=== PATIENT | female | born 1970 | race African-American/Black ===

== ENCOUNTER 2018-02-17 14:46 | Outpatient (CLI) | payer OTHER ==
--- NOTE | 2018-02-17 15:09 | RAD ---
RIGHT KNEE 4 VIEWS: Date: 02/17/18 HISTORY: Right knee pain. FINDINGS/IMPRESSION: No fracture, dislocation, or bony destruction is identified. No significant osteophytosis is seen. POS: [facility]
--- NOTE | 2018-02-17 15:10 | RAD ---
LEFT KNEE 4 VIEWS: Date: 02/17/18 HISTORY: Left knee pain. FINDINGS: Joint spaces are preserved. Minimal osteophytosis. No acute fracture, dislocation, or fluid distentio n of the joint capsule. IMPRESSION: Minimal osteoarthritic changes left knee. No acute osseous abnormalities are demonstrated. POS: [facility]
== END 2018-02-17 14:47 | disposition home or self-care (01) ==
LOC: RAD-FRANK 14:46
PROVIDERS: ATTEND Internal Medicine
DX: S89.92XA Unspecified injury of left lower leg, initial encounter (principal); S89.91XA Unspecified injury of right lower leg, initial encounter; M17.12 Unilateral primary osteoarthritis, left knee

== ENCOUNTER 2018-02-19 12:03 | Inpatient (IN) | payer OTHER ==
[2018-02-19 13:02] LABS: #Lymphocytes 1.1 thou/uL (1.20-3.40); #Monocytes 0.3 thou/uL (0.11-0.59); #Neutrophils 6.6 thou/uL (1.40-6.50); %Basophils 0.6 % (0.0-1.0); %Eosinophils 0.2 % (0.0-10.0); %Lymphocytes 13.9 % (21.0-51.0); %Neutrophils 81.4 % (42.0-75.0); Hemoglobin 15.1 g/dL (12.0-16.0); Mean Corpuscular HGB CONC 32.6 g/dL (32.0-36.0); Mean Corpuscular Hemoglobin 29.6 pg (27.0-31.0); Mean Corpuscular Volume 90.8 fl (81.0-99.0); Mean Platelet Volume 9.3 fL (7.4-10.4); Platelet Count 231 thou/uL (130-400); RBC Distribution Width 12.3 % (11.5-14.5); White Blood Cell (WBC) Count 8.1 thou/uL (4.8-10.8)
[2018-02-19 13:14] LABS: ALT (SGPT) 23 U/L (8-55); AST (SGOT) 29 U/L (5-34); Albumin 4.6 g/dL (3.5-5.0); Alkaline Phosphatase 88 U/L (40-150); Anion Gap 16 mmol/L (10-20); BUN (Urea Nitrogen) 8 mg/dL (7.0-18.7); Bilirubin, Total 0.4 mg/dL (0.2-1.2); CK (CPK) 190 U/L (29-168); Calc. Creatinine Clearance 0 mL/min (70-130); Calcium 9.5 mg/dL (7.8-10.44); Carbon Dioxide 21 mmol/L (22-29); Chloride 103 mmol/L (98-107); Estimated GFR-MDRD Greater than 90; Glucose 104 mg/dL (70-105); Protein, Total 8.6 g/dL (6.0-8.3); Sodium 136 mmol/L (136-145)
[2018-02-19 13:19] LABS: CKMB 1.3 ng/mL (0-6.6)
--- NOTE | 2018-02-19 13:36 | CT ---
CT HEAD NONCONTRAST: History: Altered mental status. Headache. Hypertension. Comparison: 06-05-09 FINDINGS: There is no evidence of acute intracranial hemorrhage or infarct. Ventricles appear normal in size, s hape, and position. There is no mass effect or shift of midline structures. IMPRESSION: No acute intracranial abnormalities are demonstrated on noncontrast CT head. POS: [facility]
[2018-02-19 13:47] LABS: Troponin I Less than 0.010 ng/mL (< 0.028)
--- NOTE | 2018-02-19 13:57 | RAD ---
CHEST 1 VIEW: Date; 02/19/18 HISTORY: Hypertension. Vomiting. Vision problems. Chest pain. COMPARISON: 06/20/15. FINDINGS: Normal cardiac silhouette. Pulmonary vessels and hilum are normal. Costophrenic angles are clear. No mass. No consolidation. No pneumothorax or osseous abnormalities. IMPRESSION: No acute cardiopulmonary process. POS: [facility]
[2018-02-19] MEDS ORDERED: hydrALAZINE 20 MG/ML VIAL ONE (14:01)
[2018-02-19] MEDS ORDERED: Ondansetron ODT 4 MG TAB ONE (14:39)
[2018-02-19] MEDS ORDERED: ADMIXTURE FEE IVPB SCH (14:45)
[2018-02-19] MEDS ORDERED: SODIUM CHLORIDE IVPB SCH (14:45)
[2018-02-19] MEDS ORDERED: NICARDIPINE HCL IVPB SCH (14:45)
[2018-02-19] MEDS ORDERED: Ondansetron HCl/PF 4 MG/2 ML Vial IVP SCH (15:00)
[2018-02-19] MEDS ORDERED: Ondansetron HCl/PF 4 MG/2 ML Vial IVP PRN (16:12)
[2018-02-19] MEDS ORDERED: Ondansetron ODT 4 MG TAB SL PRN (16:12)
[2018-02-19] MEDS ORDERED: Acetaminophen 325 MG TAB PO PRN (16:12)
[2018-02-19] MEDS ORDERED: Sodium Chloride 0.9% 1,000 ML IV SCH (16:12)
[2018-02-19 16:20] VITALS: BMI 32.1
[2018-02-19] MEDS ORDERED: Labetalol HCl 100 MG/20 ML VIAL SLOW IVP PRN (16:57)
[2018-02-19] MEDS ORDERED: NIFEdipine XL 60 MG TAB PO SCH (17:00)
[2018-02-19] MEDS ORDERED: Lisinopril 20 MG TAB PO SCH (17:00)
[2018-02-19] MEDS ORDERED: traMADol HCl 50 MG TAB PO PRN (17:45)
[2018-02-19] MEDS: Benztropine 1 MG TAB PO SCH (20:16)
[2018-02-19] MEDS: hydrOXYzine 25 MG TAB PO SCH (20:17)
[2018-02-19] MEDS ORDERED: Montelukast Sodium 10 mg Tablet PO SCH (21:00)
[2018-02-20] MEDS ORDERED: Lactated Ringer's 1,000 ML IV SCH ×2 (05:45)
--- NOTE | 2018-02-20 06:07 | CON ---
DATE OF CONSULTATION: 02/20/2018 SERVICE: Pulmonary Medicine REASON FOR CONSULTATION: IMCU patient. HISTORY OF PRESENT ILLNESS: The patient is a 47-year-old female with past medical h istory significant for some psychiatric issues. Either way, she was in her usual state of health las t night when she went to bed. When she woke up, she had upset stomach. She has been all day vomitin g, could not eat or drink anything. She presented to the Emergency Department because of some blurry vision, and elevated blood pressure. Ultimately, her blood pressure was controlled by putting her b ack on her p.o. medications. There is a thought that the Cardene drip was continued to be initiated. She was tucked into the [facility], but we never had to start that medication. Shortly after arriving he re, her blood pressure started falling off and overnight, they have been on the low side. She indica jerrell that the nausea pill take care of that discomfort. She is very thirsty. She denies any fevers, chills, nausea or vomiting. She has been coughing. She has not had wheezing or shortness of breath, dysuria, hot, red or swollen joints, or any rashes. PAST MEDICAL HISTORY: 1. Gastroesophageal reflux disease. 2. Migraine headache. 3. Asthma. 4. Hypertension. 5. Osteoarthritis. 6. Bipolar disorder. 7. Posttraumatic stress disorder. 8. Major depressive disorder. PAST SURGICAL HISTORY: 1. Hysterectomy. 2. Left knee surgery. 3. Left shoulder surgery. 4. Tubal ligation. SOCIAL HISTORY: Negative for any alcohol, tobacco or illicit drug use. She denies any exposure to c hemicals, dust, asbestos or tuberculosis. FAMILY HISTORY: Noncontributory. ALLERGIES: BENADRYL causes anaphylaxis. FENTANYL, MORPHINE, MOTRIN. MEDICATIONS: A list of her inpatient medications were reviewed. No specific updates were made at t his time other than giving a bolus of fluid. REVIEW OF SYSTEMS: General, head, ears, eyes, nose, throat, cardiovascular, respiratory, GI, , mus culoskeletal, neurologic and skin is negative except as mentioned in the HPI. PHYSICAL EXAMINATION: VITAL SIGNS: Afebrile overnight. Pulse 98, blood pressure 156/82, respirations 18, saturation 98% o n room air. GENERAL: The patient is awake, alert, no apparent distress. HEENT: Normocephalic, atraumatic. Sclerae are white, conjunctivae pink. Oral mucosa is moist witho ut lesions. LUNGS: Excellent air entry. There is no prolonged expiratory phase or wheezing present. HEART: Normal rate, regular. ABDOMEN: Soft, nontender, nondistended. Bowel sounds are positive. MUSCULOSKELETAL: No cyanosis or clubbing. There is no pitting in the bilateral lower extremities. There is minimal tenting. GENITOURINARY: No Miranda. NEUROLOGIC: Grossly nonfocal. LABORATORIES: WBC 8.1. CBC is otherwise unremarkable. Basic metabolic profile is unremarkable exce pt for a bicarbonate of 21. Liver function studies are unremarkable. Her CK is minimally elevated a t 190. Troponin and BNP fall within the normal limits. IMAGIN. CT of brain demonstrates no acute intracranial abnormality. 2. Chest x-ray demonstrates no acute cardiopulmonary abnormality. Pulmonary vasculature is normal. ASSESSMENT: 1. Gastroenteritis. 2. Dehydration, mild. 3. Hypertension, followed by marginal blood pressures. DISCUSSION AND PLAN: The patient indicates that she feels much better. She remains on the tachycard ic side and slightly dry clinically. As such, provide her with a 1 liter bolus of fluid. From my pe rspective, she is stable for transition out of the IMCU to the medical unit. Pulmonary Critical Care will continue to follow along for the time being. If she remains stable, she can likely be consider ed for transition home this afternoon, or tomorrow.
[2018-02-20] MEDS ORDERED: OXcarbazepine 300 MG TAB PO SCH (09:00)
[2018-02-20] MEDS ORDERED: Amlodipine 5 MG TAB PO SCH (09:00)
[2018-02-20] MEDS ORDERED: NIFEdipine XL 60 MG TAB PO SCH (09:00)
[2018-02-20] MEDS ORDERED: Lisinopril 20 MG TAB PO SCH ×2 (09:00)
[2018-02-20] MEDS: Benztropine 1 MG TAB PO SCH (09:02)
[2018-02-20] MEDS: hydrOXYzine 25 MG TAB PO SCH (09:03)
[2018-02-20 11:06] VITALS: BP 150/88
[2018-02-20 11:44] VITALS: TEMP 98.9
--- NOTE | 2018-02-20 18:51 | CON ---
DATE OF CONSULTATION: 02/20/2018 HISTORY OF PRESENT ILLNESS: Ms. Penaloza is a 47-year-old black female, who was admitted for labile hyp ertension. During that admission, she was noted to be having some nausea and some blurred vision. W ith better control with her BP, her symptoms improved. He is here for further evaluation of her hypertension. REVIEW OF SYSTEMS: Currently, no chest pain, no shortness of breath, transient nausea and vomiting. No headache, no diplopia, no syncopal episode, no productive cough, no fever or chills, no gross hem aturia, no dysuria, no urinary frequency, no syncopal episode, occasional joint pains. No diarrhea. Appetite and energy level is fair. No gross hematuria, no hematemesis, no sore throat, no decreased hearing, no dysuria. PAST MEDICAL HISTORY: 1. Asthma. 2. DJD. 3. Longstanding hypertension. 4. Bipolar disorder. 5. COPD. PAST SURGICAL HISTORY: 1. Status post left knee surgery. 2. Status post left shoulder surgery. 3. Status post bilateral tubal ligation. 4. Status post partial hysterectomy. MEDICATIONS: The patient is currently on the following medications: Amlodipine 5 mg once a day, Cog entin 0.5 mg p.o. b.i.d., hydroxyzine 25 mg p.o. b.i.d., labetalol 200 mg IV q.6 hours p.r.n., lisino pril 40 mg daily, Singulair 10 mg at bedtime, nifedipine 60 mg daily, oxcarbazepine 300 mg q.a.m., Pr otonix 40 mg tablet once a day, quetiapine 400 mg at bedtime, sertraline 200 mg daily. SOCIAL HISTORY: The patient is single, 2 children, lives in [place], lives alone with her [facility] iso coordinator k for longterm. No history of smoking, alcohol rarely, no IV drug abuse. Denies any blood trans fusion. Education: High school. ALLERGIES: DIPHENHYDRAMINE, FENTANYL, IBUPROFEN, and MORPHINE. FAMILY HISTORY: No family history of ESRD. Positive family history of hypertension. IMMUNIZATIONS: Not up to date. HOSPITALIZATIONS: Please see past medical history. TRAUMA: None. PHYSICAL EXAMINATION: VITAL SIGNS: Blood pressure is 150/88, heart rate 90, respiratory rate 16, temperature 98.9, pulse o x 95%. GENERAL: Noted to be awake, alert, and comfortable, not in distress. SKIN: Adequate turgor. HEENT: Pinkish conjunctivae, anicteric sclerae. NECK: No neck mass, no carotid bruits, no JVD. CHEST: No deformities. LUNGS: Clear breath sounds, no wheezing, no crackles. HEART: Normal sinus rhythm. No murmur, no gallops, no rubs. ABDOMEN: Globular, soft, nontender, no masses. EXTREMITIES: No edema, no deformities. NEUROLOGIC: Awake, oriented to 3 spheres. Moving all extremities. No tremors, no asterixis, no tate bib. IMAGING: On 02/19/2018: Chest x-ray shows no acute cardiopulmonary process. CT scan of the brain on 02/19/2018, no acute intracranial abnormality. ASSESSMENT AND PLAN: 1. Labile hypertension -- continue current blood pressure medications. Blood pressure is much impro brenden. This could have been precipitated by severe anxiety and stress. However, we will order a renal ultrasound to rule out possible renal artery stenosis. 2. Bipolar disorder. Continue current psychiatric medications. 3. Consider rechecking base met and CBC in the morning. Renal ultrasound with Doppler has been orde red.
== END 2018-02-20 13:48 | disposition left against medical advice (07) | DRG 305 ==
LOC: ERS 12:03 → IMCU/EMU 16:11
PROVIDERS: ADMIT Internal Medicine; ATTEND Internal Medicine
DX: I10 Essential (primary) hypertension (principal); E86.0 Dehydration; K52.9 Noninfective gastroenteritis and colitis, unspecified; F31.9 Bipolar disorder, unspecified; J45.909 Unspecified asthma, uncomplicated; M19.90 Unspecified osteoarthritis, unspecified site; J44.9 Chronic obstructive pulmonary disease, unspecified; Z98.51 Tubal ligation status; Z90.710 Acquired absence of both cervix and uterus; Z88.5 Allergy status to narcotic agent; Z88.8 Allergy status to other drugs, medicaments and biological substances; K21.9 Gastro-esophageal reflux disease without esophagitis; F43.10 Post-traumatic stress disorder, unspecified
CPT/HCPCS: 36415; 70450; 71045; 80053; 82553; 83880; 84484; 85025; 93005; 96361; 96374; 96375; J0360; J2405; J7050; Q0162

== ENCOUNTER → 2018-05-03 | Day surgery (SDC) | payer OTHER ==
[2018-04-30 13:35] VITALS: BMI 31.8
[~2018-05-03] MED LIST: Lidocaine 1% PF 5 ML VIAL ONE; PROPOFOL 200 MG/20 ML VIAL ONE
--- NOTE | 2018-05-03 13:17 | OP ---
DATE OF PROCEDURE: 05/03/2018 SURGEON: Yaya Abdalla M.D. PREOPERATIVE DIAGNOSES: 1. Dysphagia. 2. Reflux. 3. Chronic constipation with a bowel movement every 7 days. POSTOPERATIVE DIAGNOSES: 1. A 2 cm hiatal hernia with proximal aspect of gastric folds at 38 cm, hiatus at 40 cm, Z-line at 3 8 cm. 2. Reflux esophagitis, mild biopsied, rule out short segment Martinez's. 3. Otherwise, normal esophagogastroduodenoscopy. 4. Colonoscopy normal, constipation likely related to medications. 5. Empiric dilatation with 54-Romansh Frank dilator. Second look revealed no effect at this time f or dysphagia. RECOMMENDATIONS: 1. Continue esomeprazole antireflux regimen. 2. We will start MiraLax once daily for chronic constipation. 3. Follow up in the office in 3 weeks to annual greenhouse manager response to therapy. 4. Repeat colonoscopy in 10 years for screening purposes. ANESTHESIA: TIVA. PROCEDURE IN DETAIL: After the patient was informed of the risks, benefits, and possible complicatio ns of endoscopy including perforation, bleeding, reactions to medication and aspiration, informed con sent was obtained. The patient brought to endoscopy suite where she was sedated in gradual fashion. Once she was comfortable, a bite block was placed in the incisural orifice. The endoscope was advan danuta through the esophagus, stomach and second and third portion of duodenum. The esophagus was purvi l except for mild reflux change of distal esophagus, there was a 2 cm hiatal hernia with measurements regarding the hiatus the proximal gastric folds and Z-line as noted in the post procedure diagnoses. The stomach was entered and found to be normal in forward and retroflexed views. The duodenum was normal to the second and third portions. The stomach was then desufflated. The scope was removed. The patient was turned in the room and rectal exam was performed. The endoscope was advanced in the anal canal through the colon to cecum was identified by the ileocecal valve and the appendiceal orifi ce. Terminal ileum was entered and found to be normal. The prep was very good. The entire colon wa s normal. No polyps seen. Retroflexed views in the rectum were normal. The scope was removed. The patient was brought to recovery room in stable condition.
== END ==
LOC: SDC 06:45
PROVIDERS: ATTEND Internal Medicine Gastroenterology
PROC: 0DB58ZX Excision of Esophagus, Via Natural or Artificial Opening Endoscopic, Diagnostic (ICD-10-PCS; principal; 2018-05-03)
PROC: 0DJD8ZZ Inspection of Lower Intestinal Tract, Via Natural or Artificial Opening Endoscopic (ICD-10-PCS; principal; 2018-05-03)
DX: K59.09 Other constipation (principal); K21.0 Gastro-esophageal reflux disease with esophagitis; K44.9 Diaphragmatic hernia without obstruction or gangrene; K62.5 Hemorrhage of anus and rectum; D64.9 Anemia, unspecified; I10 Essential (primary) hypertension; F31.9 Bipolar disorder, unspecified; K43.9 Ventral hernia without obstruction or gangrene; Z88.5 Allergy status to narcotic agent; Z79.899 Other long term (current) drug therapy; Z91.018 Allergy to other foods
CPT/HCPCS: 88305; 88312; 88313; J2001; J2704

== ENCOUNTER 2018-05-17 20:44 | Emergency (ER) | payer OTHER ==
[2018-05-17 21:10] LABS: #Lymphocytes 1.7 thou/uL (1.20-3.40); #Monocytes 1.1 thou/uL (0.11-0.59); %Basophils 0.2 % (0.0-1.0); %Eosinophils 0.1 % (0.0-10.0); %Monocytes 8.2 % (0.0-10.0); %Neutrophils 78.4 % (42.0-75.0); Hemoglobin 13.2 g/dL (12.0-16.0); Mean Corpuscular HGB CONC 33.5 g/dL (32.0-36.0); Mean Corpuscular Hemoglobin 29.7 pg (27.0-31.0); Mean Corpuscular Volume 88.8 fL (78.0-98.0); Mean Platelet Volume 8.2 fL (7.4-10.4); Platelet Count 280 thou/uL (130-400); RBC Distribution Width 12.4 % (11.5-14.5); Red Blood Cell (RBC) Count 4.42 mill/uL (4.20-5.40); White Blood Cell (WBC) Count 12.8 thou/uL (4.8-10.8)
[2018-05-17 21:29] LABS: ALT (SGPT) 39 U/L (8-55); AST (SGOT) 61 U/L (5-34); Albumin 4.2 g/dL (3.5-5.0); Alkaline Phosphatase 121 U/L (40-150); Anion Gap 14 mmol/L (10-20); BUN (Urea Nitrogen) 6 mg/dL (7.0-18.7); Bilirubin, Total 0.4 mg/dL (0.2-1.2); CK (CPK) 115 U/L (29-168); Calc. Creatinine Clearance 0 mL/min (70-130); Calcium 9.3 mg/dL (7.8-10.44); Carbon Dioxide 23 mmol/L (22-29); Chloride 97 mmol/L (98-107); Estimated GFR-MDRD 81; Glucose 98 mg/dL (70-105); Potassium 3.1 mmol/L (3.5-5.1); Protein, Total 8.2 g/dL (6.0-8.3); Sodium 131 mmol/L (136-145)
== END 2018-05-18 00:21 | disposition left against medical advice (07) ==
LOC: ERS 20:44
DX: Z53.21 Procedure and treatment not carried out due to patient leaving prior to being seen by health care provider (principal)
CPT/HCPCS: 36415; 80053; 82550; 85025

== ENCOUNTER 2018-06-22 11:10 | Outpatient (CLI) | payer OTHER ==
[2018-06-22 12:14] LABS: #Eosinphils 0.1 thou/uL (0.0-0.7); #Lymphocytes 1.8 thou/uL (1.20-3.40); #Monocytes 0.5 thou/uL (0.11-0.59); #Neutrophils 4.1 thou/uL (1.40-6.50); %Basophils 0.2 % (0.0-1.0); %Eosinophils 1.4 % (0.0-10.0); %Lymphocytes 28.5 % (21.0-51.0); %Monocytes 6.9 % (0.0-10.0); Hemoglobin 12.9 g/dL (12.0-16.0); Mean Corpuscular HGB CONC 32.8 g/dL (32.0-36.0); Mean Corpuscular Volume 91.5 fL (78.0-98.0); Mean Platelet Volume 9.3 fL (7.4-10.4); Platelet Count 174 thou/uL (130-400); RBC Distribution Width 12.9 % (11.5-14.5); White Blood Cell (WBC) Count 6.5 thou/uL (4.8-10.8)
[2018-06-22 12:41] LABS: Anion Gap 14 mmol/L (10-20); BUN (Urea Nitrogen) 8 mg/dL (7.0-18.7); Calc. Creatinine Clearance 0 mL/min (70-130); Calcium 9.4 mg/dL (7.8-10.44); Carbon Dioxide 21 mmol/L (22-29); Chloride 103 mmol/L (98-107); Estimated GFR-MDRD 89; Glucose 88 mg/dL (70-105); Potassium 3.9 mmol/L (3.5-5.1); Sodium 134 mmol/L (136-145)
== END 2018-06-22 11:11 | disposition home or self-care (01) ==
LOC: LABBT 11:10
PROVIDERS: ATTEND Surgery
DX: Z01.818 Encounter for other preprocedural examination (principal); K42.9 Umbilical hernia without obstruction or gangrene
CPT/HCPCS: 80048; 85025

== ENCOUNTER 2018-06-25 05:55 | Day surgery (SDC) | payer OTHER ==
[2018-06-22 11:27] VITALS: BMI 31.8
[2018-06-25] MEDS ORDERED: CEFAZOLIN/Water 2 GM/20 ML SYRINGE ONE (06:07)
[2018-06-25] MEDS ORDERED: Ketorolac Tromethamine 30 MG/ML VIAL ONE (06:07)
[2018-06-25] MEDS ORDERED: Bupivacaine/Epinephrine 0.25% 30 ML VIAL ONE (06:42)
[2018-06-25] MEDS ORDERED: Fentanyl 100 MCG/2 ML VIAL ONE (07:08)
[2018-06-25] MEDS ORDERED: HYDROmorphone 2 MG/ML VIAL ONE (07:09)
[2018-06-25] MEDS ORDERED: hydrOXYzine 25 MG TAB PO ONE (10:00)
[2018-06-25] MEDS ORDERED: Dexamethasone 20 MG/5 ML VIAL ONE (11:02)
[2018-06-25] MEDS ORDERED: PROPOFOL 200 MG/20 ML VIAL ONE (11:02)
[2018-06-25] MEDS ORDERED: Glycopyrrolate 0.2 MG/ML 5 ML SYRINGE ONE (11:02)
[2018-06-25] MEDS ORDERED: Lidocaine 1% PF 5 ML VIAL ONE (11:02)
[2018-06-25] MEDS ORDERED: ePHEDrine/0.9% NaCl/PF SYRINGE 50 mg/10 ml ONE (11:02)
[2018-06-25] MEDS ORDERED: Ondansetron HCl/PF 4 MG/2 ML Vial ONE (11:02)
[2018-06-25] MEDS ORDERED: Ondansetron ODT 4 MG TAB ONE (11:25)
--- NOTE | 2018-06-29 10:57 | OP ---
PROCEDURE: Repair of epigastric hernia with mesh. PREOPERATIVE DIAGNOSIS: Epigastric hernia. POSTOPERATIVE DIAGNOSIS: Epigastric hernia. HISTORY: Ms. Penaloza is a 47-year-old woman with a longstanding epigastric hernia, which is quite symp tomatic and for which she desires repair. Since the hernia was incarcerated, I recommended open repa ir. Since this is likely at the site of her incision for her tubal ligation, I also recommended mesh placement, since the tissues in this area are likely weekend. PROCEDURE IN DETAIL: After informed consent was obtained and appropriate preoperative antibiotics ad ministered, the patient was taken to the operating room where she was placed in supine position and a nesthesia was administered. She was prepped and draped in a standard sterile fashion and local anest hesia infused to the skin and subcutaneous tissues overlying the hernia. A vertical incision was mad e and dissection carried down to the hernia sac, which was dissected free circumferentially down to t he fascial defect. Once the fascia was cleared circumferentially, the hernia was able to be reduced into the abdominal cavity. A space was created using blunt dissection in the preperitoneal space and a 6.4 cm Ventralex patch was placed into the preperitoneal space and confirmed to be lying flat agai nst the fascia. The fascial defect was closed using [id number] Ethibond sutures incorporating t he central strap into the closure. The strap was trimmed and additional local anesthesia infused for postoperative pain control. Hemostasis was verified and the wound was irrigated. The subcutaneous tissues were reapproximated with [id number] subcutaneous 3-0 Monocryl sutures and the skin was c losed with a running 4-0 subcuticular Monocryl suture. Dermabond dressings were placed and the patie nt was extubated and taken to the recovery room in good condition. Estimated blood loss was minimal. There were no complications. There were no specimens.
== END 2018-06-25 12:00 | disposition home or self-care (01) ==
LOC: SDC 05:55
PROVIDERS: ATTEND Surgery
PROC: 0WUF0JZ Supplement Abdominal Wall with Synthetic Substitute, Open Approach (ICD-10-PCS; principal; 2018-06-25)
DX: K43.9 Ventral hernia without obstruction or gangrene (principal); G43.909 Migraine, unspecified, not intractable, without status migrainosus; J45.909 Unspecified asthma, uncomplicated; F31.9 Bipolar disorder, unspecified; F41.9 Anxiety disorder, unspecified; I10 Essential (primary) hypertension; Z79.899 Other long term (current) drug therapy; Z91.018 Allergy to other foods; Z88.5 Allergy status to narcotic agent; Z88.8 Allergy status to other drugs, medicaments and biological substances
CPT/HCPCS: J0131; J1100; J1170; J1885; J2001; J2405; J2704; J3010; Q0162

== ENCOUNTER 2018-08-22 09:58 | Emergency (ER) | payer OTHER, SELFPAY ==
[2018-08-22 10:32] LABS: #Basophils 0.1 thou/uL (0.0-0.2); #Eosinphils 0.1 thou/uL (0.0-0.7); #Lymphocytes 1.8 thou/uL (1.20-3.40); #Monocytes 0.9 thou/uL (0.11-0.59); #Neutrophils 5.3 thou/uL (1.40-6.50); %Basophils 0.7 % (0.0-1.0); %Eosinophils 0.8 % (0.0-10.0); %Lymphocytes 22.2 % (21.0-51.0); %Monocytes 10.5 % (0.0-10.0); %Neutrophils 65.7 % (42.0-75.0); Hemoglobin 13.1 g/dL (12.0-16.0); Mean Corpuscular HGB CONC 32.5 g/dL (32.0-36.0); Mean Corpuscular Hemoglobin 29.2 pg (27.0-31.0); Mean Corpuscular Volume 89.9 fL (78.0-98.0); Mean Platelet Volume 8.5 fL (7.4-10.4); Platelet Count 284 thou/uL (130-400); RBC Distribution Width 12.7 % (11.5-14.5); White Blood Cell (WBC) Count 8.1 thou/uL (4.8-10.8)
[2018-08-22 10:53] LABS: ALT (SGPT) 30 U/L (8-55); AST (SGOT) 45 U/L (5-34); Alkaline Phosphatase 83 U/L (40-150); Anion Gap 11 mmol/L (10-20); BUN (Urea Nitrogen) 7 mg/dL (7.0-18.7); Bilirubin, Total 0.4 mg/dL (0.2-1.2); Calc. Creatinine Clearance 0 mL/min (70-130); Calcium 8.9 mg/dL (7.8-10.44); Carbon Dioxide 25 mmol/L (22-29); Chloride 102 mmol/L (98-107); Estimated GFR-MDRD 86; Globulin 3.5 g/dL (2.4-3.5); Glucose 106 mg/dL (70-105); Potassium 3.2 mmol/L (3.5-5.1); Protein, Total 7.5 g/dL (6.0-8.3); Sodium 135 mmol/L (136-145)
--- NOTE | 2018-08-22 11:45 | RAD ---
2 VIEW CHEST: Date: 08/22/18 HISTORY: Cough. COMPARISON: 08/01/13. FINDINGS: Evidence of mild bibasilar atelectasis. No evidence of infiltrate. Heart and mediastinum unremarkable . IMPRESSION: Mild bibasilar atelectasis. No evidence of focal infiltrate. POS: [facility]
== END 2018-08-22 12:33 | disposition home or self-care (01) ==
LOC: ERS 09:58
DX: J01.90 Acute sinusitis, unspecified (principal); K21.9 Gastro-esophageal reflux disease without esophagitis; J45.909 Unspecified asthma, uncomplicated; M19.90 Unspecified osteoarthritis, unspecified site; I10 Essential (primary) hypertension; F41.9 Anxiety disorder, unspecified; F31.9 Bipolar disorder, unspecified; F43.10 Post-traumatic stress disorder, unspecified; G43.909 Migraine, unspecified, not intractable, without status migrainosus; Z79.899 Other long term (current) drug therapy
CPT/HCPCS: 36415; 71046; 80053; 83880; 85025; 94640; J7620

== ENCOUNTER 2018-09-14 08:55 | Emergency (ER) | payer SELFPAY ==
--- NOTE | 2018-09-14 09:48 | RAD ---
CHEST TWO VIEWS: Comparison: 08-22-18 History: Cough. FINDINGS: Normal cardiac silhouette. The pulmonary vessels and hilum are normal. Costophrenic angles are clear. No consolidation or mass. No pneumothorax or osseous abnormalities. IMPRESSION: No acute cardiopulmonary process. POS: [facility]
[2018-09-14] MEDS ORDERED: Ibuprofen 800 MG TAB ONE (10:20)
[2018-09-14] MEDS ORDERED: Acetaminophen 500 MG TAB ONE (10:23)
== END 2018-09-14 10:27 | disposition home or self-care (01) ==
LOC: ERS 08:55
DX: R05 Cough (principal); R09.89 Other specified symptoms and signs involving the circulatory and respiratory systems; K21.9 Gastro-esophageal reflux disease without esophagitis; G43.909 Migraine, unspecified, not intractable, without status migrainosus; J45.909 Unspecified asthma, uncomplicated; I10 Essential (primary) hypertension; F41.9 Anxiety disorder, unspecified; F31.9 Bipolar disorder, unspecified; G47.00 Insomnia, unspecified; F43.10 Post-traumatic stress disorder, unspecified; Z79.899 Other long term (current) drug therapy
CPT/HCPCS: 71046; 87081; 87430

== ENCOUNTER 2019-03-15 09:36 | Outpatient (CLI) | payer OTHER ==
--- NOTE | 2019-03-15 10:43 | RAD ---
TWO VIEWS OF THE ABDOMEN: Comparison: None. History: Abdominal pain, constipation. FINDINGS: Supine and upright views of the abdomen shows a nonspecific, nonobstructed bowel gas pattern. No susp icious calcifications are seen. No free air or air fluid levels are seen on the upright examination. IMPRESSION: Unremarkable exam. POS: [facility]
== END 2019-03-15 09:37 | disposition home or self-care (01) ==
LOC: RAD 09:36
PROVIDERS: ATTEND Surgery
DX: R10.9 Unspecified abdominal pain (principal); K59.00 Constipation, unspecified
CPT/HCPCS: 74019

== ENCOUNTER 2019-04-01 07:43 | Outpatient (CLI) | payer OTHER ==
--- NOTE | 2019-04-01 09:18 | CT ---
CT Abdomen Pelvis W Con History: [R 10.9 abdominal pain] Comparison: CT abdomen and pelvis stone protocol 2017 Findings: The lung bases are clear. No pericardial effusion. A hypodensity hepatic segment IVb incomp letely evaluated on this examination although overall the size is similar to the 2017 exam when taking into the affected there is lack of intravenous contrast. No dilated loops of large or small bowel. The aortoiliac contour is nonaneurysmal. No hydronephrosis. Adrenal glands are unremarkable as well as the pancreas and spleen. No acute osseous abnormality. Small volume scar supraumbilical midline soft tissues. Impression: 1. No acute inflammatory process within the abdomen or pelvis. 2. Hypodensity hepatic segment IVb is incompletely evaluated on this examination although relatively similar in size compared to the CT stone protocol study from 2017 given the lack of intravenous contrast. Nonemergent liver protocol CT or MRI can be performed in 6 months for further investigation . 3. Flash filling hemangioma hepatic dome segment 8 measuring 1 cm in size.
== END 2019-04-01 07:44 | disposition home or self-care (01) ==
LOC: BICCT 07:43
PROVIDERS: ATTEND Surgery
DX: K59.00 Constipation, unspecified (principal); R10.9 Unspecified abdominal pain; D18.09 Hemangioma of other sites
CPT/HCPCS: 74177

== ENCOUNTER 2019-07-27 11:01 | Outpatient (CLI) | payer OTHER ==
--- NOTE | 2019-07-27 11:25 | RAD ---
XR Lumbar Spine 2 Or 3 View: 07/27/2019 12:00 AM CLINICAL INDICATION: Pain COMPARISON: None. FINDINGS: Fracture:No fracture. Arthropathy:Mild facet osteoarthritis. Incidental findings:Pelvic phleboliths. IMPRESSION: 1. No acute osseous abnormality.
--- NOTE | 2019-07-27 12:18 | RAD ---
LEFT HIP TWO VIEWS: HISTORY: Left hip pain. COMPARISON: 11/15/2013 FINDINGS: Two views of the left hip show no evidence of acute fracture or dislocation. No degenerative changes are seen. No soft tissue swelling is seen. IMPRESSION: No evidence of acute osseous abnormality. POS: [facility]
== END 2019-07-27 11:02 | disposition home or self-care (01) ==
LOC: RAD-FRANK 11:01
PROVIDERS: ATTEND Internal Medicine
DX: M54.5 Low back pain (principal); M25.552 Pain in left hip
CPT/HCPCS: 72100

== ENCOUNTER 2019-07-31 08:57 | Emergency (ER) | payer SELFPAY ==
--- NOTE | 2019-07-31 09:39 | RAD ---
EXAM: Two views chest PROVIDED CLINICAL HISTORY: Cough and fever. COMPARISON: 09/14/2018. FINDINGS: Cardiac silhouette and pulmonary vasculature are within normal limits. The lungs are clear. The osse ous structures have a normal appearance. Chest is unchanged compared to prior study. IMPRESSION: No acute cardiopulmonary process.
== END 2019-07-31 11:13 | disposition home or self-care (01) ==
LOC: ERS 08:57
DX: J20.9 Acute bronchitis, unspecified (principal); M19.90 Unspecified osteoarthritis, unspecified site; K21.9 Gastro-esophageal reflux disease without esophagitis; G43.909 Migraine, unspecified, not intractable, without status migrainosus; F31.9 Bipolar disorder, unspecified; F41.9 Anxiety disorder, unspecified; G47.00 Insomnia, unspecified; F43.10 Post-traumatic stress disorder, unspecified; Z79.899 Other long term (current) drug therapy
CPT/HCPCS: 71046; 87804

== ENCOUNTER 2022-02-27 08:49 | Outpatient (CLI) | payer OTHER | END 2022-02-27 08:50 | disposition home or self-care (01) | LOC: RAD-FRANK 08:49 | PROVIDERS: ATTEND Nurse Practitioner Family | DX: M25.511 Pain in right shoulder (principal); M25.521 Pain in right elbow; M25.571 Pain in right ankle and joints of right foot ==